=== PATIENT | male | born 1995 | race Hispanic/Latino ===

== ENCOUNTER 2023-02-19 11:04 | Emergency (ER) | payer OTHER ==
[~2023-02-19] VITALS: Ht 190.5 cm; Wt 108.9 kg
[2023-02-19] MEDS ORDERED: IBUPROFEN 600 MG TABLET PO ONE (12:00)
[2023-02-19] MEDS ORDERED: FLUORESCEIN SODIUM 1 STRIP STRIP ONE (13:53)
[2023-02-19] MEDS ORDERED: FLUORESCEIN SODIUM 1 STRIP STRIP OP SCH (14:00)
[2023-02-19] MEDS ORDERED: TETRACAINE HCL 0.5% 4 ML OPHTH SOLN ONE (14:00)
[2023-02-19] MEDS ORDERED: IBUP-2070 PO (14:12)
[2023-02-19] MEDS ORDERED: POLYOS OU (14:12)
[2023-02-19 14:37] VITALS: BP 125/71
== END 2023-02-19 14:46 | disposition home or self-care (01) ==
LOC: EDH 11:04
DX: S05.01XA Injury of conjunctiva and corneal abrasion without foreign body, right eye, initial encounter (principal); H10.9 Unspecified conjunctivitis; X58.XXXA Exposure to other specified factors, initial encounter; Y93.89 Activity, other specified; Y92.89 Other specified places as the place of occurrence of the external cause; Y99.8 Other external cause status